=== PATIENT | male | born 1965 | race Caucasian/White ===

== ENCOUNTER 2017-03-31 00:34 | Emergency (ER) | payer SELFPAY ==
[2017-03-31] MEDS ORDERED: NO HOME MEDICATION XX (00:43)
[2017-03-31] MEDS ORDERED: [UNRECOGNIZED DRUG - OTHER] PO (01:12)
[2017-03-31] MEDS ORDERED: IRON18 M1 PO (01:12)
[2017-03-31 01:59] LABS: URINE BILIRUBIN NEGATIVE (NEG); URINE BLOOD MODERATE (NEG); URINE GLUCOSE (UA) NEGATIVE (NEG); URINE KETONE NEGATIVE (NEG); URINE LEUKOCYTE ESTERASE POSITIVE (NEG); URINE NITRITE NEGATIVE (NEG); URINE PROTEIN SMALL (NEG); URINE SPECIFIC GRAVITY 1.025 (1.003-1.030)
[2017-03-31 02:03] LABS: URINE APPEARANCE HAZY; URINE COLOR YELLOW
[2017-03-31 02:04] LABS: URINE EPITHELIAL CELLS 0 /[HPF] (0-10); URINE WBC 15-20 /[HPF] (0-5)
[2017-03-31] MEDS ORDERED: BACTRIM DS TAB1 EAC2 PO (04:20)
[2017-03-31 04:24] LABS: BASO % 0.5 % (0-2); BASO ABSOLUTE COUNT 0.1 tho/cmm (0.0-0.2); EOS % 2.8 % (0-7); EOSINOPHIL ABSOLUTE COUNT 0.3 tho/cmm (0.0-0.7); HCT-HEMATOCRIT 35.2 % (36.0-53.5); IMMATURE GRANULOCYTES ABSOLUTE 0.15 tho/cmm (0-0.03); IMMATURE GRANULOCYTES PERCENT 1.6 % (0-0.3); LYMPH % 23.7 % (20-45); LYMPH ABSOLUTE COUNT 2.3 tho/cmm (0.8-4.5); MCH (MEAN CORPUSCULAR HGB) 30.9 pg (28.0-32.0); MCHC MEAN CORPUSCULAR HGB CONC 34.1 % (32.0-36.0); MCV (MEAN CELL VOLUME) 90.7 fl (82.0-96.0); MEAN PLATELET VOLUME 9.3 cmc (9.4-12.4); MONO % 10.2 % (0-12); NEUTROPHIL ABSOLUTE COUNT 5.8 tho/cmm (1.6-8.0); NEUTROPHIL-AUTOMATED 5.8 tho/cmm (1.6-8.0); NEUTROPHILS % 61.2 % (40-80); PLATELET COUNT 322 tho/cmm (150-450); RED BLOOD COUNT 3.88 mil/cmm (4.40-5.70); RED CELL DISTRIBUTION WIDTH 13.5 % (12.4-16.4); WHITE BLOOD COUNT 9.5 tho/cmm (4.0-10.0)
[2017-03-31 04:54] LABS: ANION GAP 14 mmol/L (0-20); BLOOD UREA NITROGEN 19 mg/dl (6-24); CALCIUM 9.3 mg/dl (8.5-10.5); CARBON DIOXIDE-VENOUS 26 mmol/L (22-32); CHLORIDE 102 mmol/l (96-110); CREATININE 0.71 mg/dl (0.60-1.30); GLUCOSE 99 mg/dL (70-110); POTASSIUM 3.8 mmol/L (3.7-5.1); SODIUM 138 mmol/L (135-145); eGFR VALUE FOR BLACK >90 mL/Min
== END 2017-03-31 05:11 ==
LOC: EDMED 00:34
PROVIDERS: Emergency Medicine
DX: N45.2 Orchitis (principal)
CPT/HCPCS: J0696